=== PATIENT | male | born 1925 | race Caucasian/White ===

== ENCOUNTER 2016-10-08 06:56 | Day surgery (SDC) | payer MEDICARE, OTHER ==
[~2016-10-08 06:56] MED LIST: FENTANYL 250 MCG/5 ML AMP IV PRN; IV START KIT ONE; LACTATED RINGERS 1,000 ML IV SCH; LACTATED RINGERS 1,000 ML ONE; MIDAZOLAM HCL 5 MG/5 ML VIAL IV PRN
[2016-10-08] MEDS ORDERED: FENTANYL 5 ML ONE (08:13)
[2016-10-08] MEDS ORDERED: MIDAZOLAM HCL 5 MG/5 ML VIAL ONE (08:13)
--- NOTE | 2016-10-10 09:17 | SURGPATH ---
[facility] [address] [place] [id number] Patient Name: BERNARDO SANTOS MR#: [id number] : 1925 Gender: M Specimen #: [id number] Collected: 10/08/2016 Received: 10/09/2016 Reported: 10/10/2016 Submitting Phys: GABRIEL GUILLEN Copy To Phys: [facility] Clinical History / Pre-Operative Diagnosis: ABNORMAL CT; RIGHT SIDED ABDOMINAL PAIN Specimen Source / Surgical Procedure Performed: #1-TERMINAL ILEUM; #2-CECAL BIOPSY; #3-SIGMOID BIOPSY Interpretation: 1, 2, 3. TERMINAL ILEUM, CECUM, SIGMOID COLON, BIOPSIES: - NO PATHOLOGIC DIAGNOSIS Electronically Signed Out Gary Price M.D. Gross Description: #1 The specimen is received in a formalin filled container labeled with the patient's name and "terminal ileum". A single solomon biopsy is 0.5 cm. Totally embedded in cassette #1. #2 The specimen is received in a formalin filled container labeled with the patient's name and "cecal biopsy". Two alford-solomon biopsies are 0.4 and 0.5 cm. Totally embedded in cassette #2. #3 The specimen is received in a formalin filled container labeled with the patient's name and "sigmoid biopsy". Two solomon biopsies are each 0.3 cm. Totally embedded in cassette #3. Lauro Hassan Microscopic Description: 1. Levels reveal small intestinal mucosa with a villous architecture and prominent lymphoid aggregates consistent with ileum. Ulceration, acute inflammation, granulomas, dysplasia and malignancy are not present. 2, 3. Levels reveal colonic mucosa with a normal glandular architecture. Ulceration, acute inflammation, crypt abscesses, granulomas, hyperplasia, dysplasia and malignancy are not seen. 1: [id number] 2: 74845 3: 18171 R10.30
== END 2016-10-08 09:20 | disposition home or self-care (01) ==
LOC: SDC 06:56
PROVIDERS: ATTEND Internal Medicine Gastroenterology
PROC: 0DBB8ZX Excision of Ileum, Via Natural or Artificial Opening Endoscopic, Diagnostic (ICD-10-PCS; principal; 2016-10-08)
PROC: 0DBN8ZX Excision of Sigmoid Colon, Via Natural or Artificial Opening Endoscopic, Diagnostic (ICD-10-PCS; 2016-10-08)
PROC: 0DBH8ZX Excision of Cecum, Via Natural or Artificial Opening Endoscopic, Diagnostic (ICD-10-PCS; 2016-10-08)
DX: K57.30 Diverticulosis of large intestine without perforation or abscess without bleeding (principal); Z86.010 Personal history of colon polyps; J45.909 Unspecified asthma, uncomplicated; G47.00 Insomnia, unspecified; E80.20 Unspecified porphyria
CPT/HCPCS: 45380; J3010; J2250; J7120